=== PATIENT | male | born 1955 | race Caucasian/White ===

== ENCOUNTER → 2017-05-05 09:26 | Outpatient (CLI) | payer OTHER, SELFPAY ==
[2017-05-05 10:29] LABS: ALB/GLOB Ratio 0.9 RATIO (0.9-2.4); AST(SGOT) 20 U/L (15-37); Alanine Aminotransfer ALT/SGPT 29 U/L (16-61); Albumin, Serum 3.5 g/dL (3.2-5.0); Alkaline Phosphatase 71 U/L (45-117); Anion Gap 6 (5-15); BUN 12 mg/dL (7-18); BUN/Creat Ratio 14.5 RATIO (10-20); Calcium,Total 8.5 mg/dL (8.5-10.1); Chloride 107 mmol/L (98-107); Cholesterol 147 mg/dL (200); Creatinine, Serum 0.83 mg/dL (0.70-1.30); EST Glomerular Filtration Rate 100 mL/min (>60); Est Glom Filt Rate - Afr Amer 121 mL/min (>60); Glucose 93 mg/dL (74-106); High Density Lipoprotein 54 mg/dL; PSA,Total - Annual Screen 0.37 ng/mL (0.00-4.00); Potassium 4.3 mmol/L (3.5-5.1); Protein, Total 7.5 g/dL (6.4-8.2); Sodium Level 142 mmol/L (136-145); Triglycerides 57 mg/dL; Very Low Density Lipoprotein 11 mg/dL (5-40)
[2017-05-07 09:53] LABS: Vitamin D,25 Hydroxy 52.9 ng/mL (19.95-100.01)
== END ==
PROVIDERS: Family Provider Family Medicine; PCP Family Medicine; Visit Provider Family Medicine
DX: E78.00 Pure hypercholesterolemia, unspecified (principal); E55.9 Vitamin D deficiency, unspecified; Z12.5 Encounter for screening for malignant neoplasm of prostate
CPT/HCPCS: 36415; 80053; 80061; 82306; 84153; G0103

== ENCOUNTER → 2018-04-22 14:39 | Outpatient (CLI) | payer OTHER, SELFPAY ==
--- NOTE | 2018-04-22 14:44 | RAD_ITS ---
STUDY: X-RAY - PARANASAL SINUSES REASON FOR EXAM: Male, 62 years old. Allergic rhinitis TECHNIQUE: 4 view(s) of the paranasal sinuses were obtained. COMPARISON: None. FINDINGS: There appears to be near complete opacification of the right maxillary sinus. Possible opacification of the frontal sinuses. Remaining paranasal sinuses appear clear Normal visualized facial bones. The soft tissue structures are unremarkable. RAD/Sinuses min 3 Views IMPRESSION: Paranasal sinus disease as above Electronically Signed: Adriano Aranda DO at 15:10 EST Tel , Service support ,
--- OUTSIDE RECORDS SUMMARY | 2018-06-25 02:52 | XMS RPT_ITS ---
:1955 Author Organization OHIP Care Team Providers Name Role Phone Brendon Blanco Attending Unavailable Brendon Blanco Referring Unavailable Brendon Blanco Primary Care Unavailable Brendon Blanco Attending Unavailable Brendon Blanco Referring Unavailable Brendon Blanco Primary Care Unavailable Brendon Blanco Attending Unavailable Brendon Blanco Primary Care Unavailable Brendon Blanco Referring Unavailable Brendon Blanco Attending Unavailable Brendon Blanco Referring Unavailable Brendon Blanco Primary Care Unavailable PROBLEMS PROBLEMS DATE TYPE CONDITION / CODE ATTENDING STATUS SOURCE 04/23/2018 Unknown R93.0 - Abnormal Bella Active Baljinder findings on [facility] imaging of skull Repository and head, not elsewhere classified / R93.0(ICD-10) 04/22/2018 Unknown J30.9 - Allergic Ranney, Active Baljinder rhinitis, [facility] unspecified / Hospital J30.9(ICD-10) Repository PROCEDURES PROCEDURES No Procedure Records FoundRESULTS RESULTS COMPREHENSIVE METABOLIC Collected: 04/27/2018 Status: F Source: [place] PROFIL 10:06 AM [facility] REPOSITORY Order Comment: Order Date: 10/22/17 Order Info: [id number] - CMP Order Info: [id number] - LIPID Order Info: [id number] - PSAD TYPE CODE TESTS RESULT OUT OF RANGE REFERENCE UNITS LAB L501.0100 74-106 mg/dL Normal GLU 88 Result Comment: Please note revised GLUCOSE reference range effective 2017. LAB L501.1000 7-18 mg/dL Normal BUN 12 LAB L501.1100 0.70-1.30 mg/dL Normal CREAT,SERUM 1.08 Result Comment: The validity of the calculated GFR AND GFRAA in patients over 70 years has not been determined. Clinical correlation is essential. LAB L501.1110 >60 mL/min Normal EST GFR 74 Result Comment: Non- GFR Calc LAB L501.1115 >60 mL/min Normal EST GFR - AA 89 Result Comment: GFR Calc LAB L501.1300 10-20 RATIO Normal BUN/CRE 11.1 LAB L501.1500 6.4-8.2 g/dL T Normal PROT 7.5 LAB L501.1800 3.2-5.0 g/dL Normal ALB 3.9 LAB L501.1950 2.2-4.2 g/dL Normal GLOB 3.6 LAB L501.2000 0.9-2.4 RATIO Normal A/G 1.1 LAB L501.2200 8.5-10.1 mg/dL Low CA 8.2 LAB L501.4100 15-37 U/L Normal AST 19 LAB L501.4305 45-117 U/L Normal ALK P 85 LAB L501.4405 16-61 U/L Normal ALT 31 LAB L501.4600 0.20-1.00 mg/dL T Normal BILI 0.70 LAB L501.5300 136-145 mmol/L NA Normal 137 LAB L501.5600 3.5-5.1 mmol/L K Normal 4.3 LAB L501.5900 98-107 mmol/L CL Normal 104 LAB L501.6100 21.0-32.0 mmol/L Normal CO2 26.0 LAB L501.6200 5-15 Normal GAP 7 Performed By: #### L500.4050, L500.4100, L501.9940 #### [facility] [address] [place], [place], [address] LIPID PROFILE Collected: 04/27/2018 Status: F Source: [place] 10:06 AM [facility] REPOSITORY Order Comment: Order Date: 10/22/17 Order Info: [id number] - CMP Order Info: [id number] - LIPID Order Info: [id number] - PSAD TYPE CODE TESTS RESULT OUT OF RANGE REFERENCE UNITS LAB L501.4900 200 mg/dL Normal CHOL 145 Result Comment: <200 mg/dL Desirable 200-240 mg/dL Borderline >240 mg/dL High Risk LAB L501.5000 mg/dL Normal TRIG 63 Result Comment: The drugs N-Acetylcysteine and Metamizole may falsely depress this assay. Serum Triglycerides Reference Interval Normal <150 mg/dL Borderline high 150 - 199 mg/dL High 200 - 499 mg/dL Very High > or = 500 mg/dL LAB L501.6400 mg/dL Normal HDL 57 Result Comment: The drugs N-Acetylcysteine and Metamizole may falsely depress this assay. Reference Range HDL <40 mg/dL Low HDL Cholesterol HDL >or= 60 mg/dL High HDL Cholesterol LAB L501.6500 0-130 mg/dL Normal LDL 75 LAB L501.6600 5-40 mg/dL Normal VLDL 13 Performed By: #### L500.4050, L500.4100, L501.9940 #### [facility] [address] [place], [place], [address] PSA,TOTAL- DIAGNOSTIC Collected: 04/27/2018 Status: F Source: [place] 10:06 [facility] [place] REPOSITORY Order Comment: Order Date: 10/22/17 Order Info: [id number] - CMP Order Info: [id number] - LIPID Order Info: [id number] - PSAD TYPE CODE TESTS RESULT OUT OF RANGE REFERENCE UNITS LAB L501.9940 0.0-4.0 ng/mL PSA, Normal DIAGNOSTIC 0.38 Result Comment: This test was performed using the TPSA assay method for the [employer] chemistry system. Values obtained with different assay methods cannot be used interchangably. When changing PSA assays in the course of monitoring a patient, additional sequential testing should be carried out to confirm baseline values. Performed By: #### L500.4050, L500.4100, L501.9940 #### [facility] [address] [place], [address] SINUSES MIN 3 VIEWS Observed: 04/22/2018 Status: F Source: [place] 2:44 PM [facility] REPOSITORY [facility] Services [address] [place] [address] Sinuses min 3 Views MR#: [id number] Acct: [id number] Name: OBDULIA CLARK Rep #: [id number] : 1955 M 62 From: Adriano Aranda DO PCP: Brendon Blanco MD Status: REG CLI Study: Sinuses min 3 Views Date of Exam: 04/22/18 Exam# [id number] Ordering Dr: Dustin Blanco MD STUDY: X-RAY - PARANASAL SINUSES REASON FOR EXAM: Male, 62 years old. Allergic rhinitis TECHNIQUE: 4 view(s) of the paranasal sinuses were obtained. COMPARISON: None. FINDINGS: There appears to be near complete opacification of the right maxillary sinus. Possible opacification of the frontal sinuses. Remaining paranasal sinuses appear clear Normal visualized facial bones. The soft tissue structures are unremarkable. RAD/Sinuses min 3 Views IMPRESSION: Paranasal sinus disease as above Electronically Signed: Adriano Aranda DO at 15:10 EST Tel , Service support , CC: Brendon Blanco MD Senior Radiation Protection Technician: Signed COMPREHENSIVE METABOLIC Collected: 05/05/2017 Status: F Source: [place] PROFIL 9:33 AM [facility] REPOSITORY Order Comment: Order Date: 10/17/16 Order Info: [id number] - CMP Order Info: [id number] - LIPID Order Info: [id number] - PSA TYPE CODE TESTS RESULT OUT OF RANGE REFERENCE UNITS LAB L501.0100 74-106 mg/dL Normal GLU 93 LAB L501.1000 7-18 mg/dL Normal BUN 12 LAB L501.1100 0.70-1.30 mg/dL Normal 0.83 CREAT,SERUM Result Comment: The validity of the calculated GFR AND GFRAA in patients over 70 years has not been determined. Clinical correlation is essential. LAB L501.1110 >60 mL/min Normal EST GFR 100 Result Comment: Non- GFR Calc LAB L501.1115 >60 mL/min Normal EST GFR - AA 121 Result Comment: GFR Calc LAB L501.1300 10-20 RATIO Normal BUN/CRE 14.5 LAB L501.1500 6.4-8.2 g/dL T Normal PROT 7.5 LAB L501.1800 3.2-5.0 g/dL Normal ALB 3.5 LAB L501.1950 2.2-4.2 g/dL Normal GLOB 4.0 LAB L501.2000 0.9-2.4 RATIO Normal A/G 0.9 LAB L501.2200 8.5-10.1 mg/dL CA Normal 8.5 LAB L501.4100 15-37 U/L Normal AST 20 LAB L501.4305 45-117 U/L Normal ALK P 71 LAB L501.4405 16-61 U/L Normal ALT 29 Result Comment: Please note revised ALT reference range effective 2017. LAB L501.4600 0.20-1.00 mg/dL Normal T BILI 0.60 LAB L501.5300 136-145 mmol/L Normal NA 142 LAB L501.5600 3.5-5.1 mmol/L Normal K 4.3 LAB L501.5900 98-107 mmol/L Normal CL 107 LAB L501.6100 21.0-32.0 mmol/L Normal CO2 29.0 LAB L501.6200 5-15 Normal GAP 6 Performed By: #### L500.4050, L500.4100, L501.9910, L506.1000 #### [facility] [address] [place], [address] LIPID PROFILE Collected: 05/05/2017 Status: F Source: [place] 9:33 AM [facility] REPOSITORY Order Comment: Order Date: 10/17/16 Order Info: [id number] - CMP Order Info: [id number] - LIPID Order Info: [id number] - PSA TYPE CODE TESTS RESULT OUT OF RANGE REFERENCE UNITS LAB L501.4900 200 mg/dL Normal CHOL 147 Result Comment: <200 mg/dL Desirable 200-240 mg/dL Borderline >240 mg/dL High Risk LAB L501.5000 mg/dL Normal TRIG 57 Result Comment: The drugs N-Acetylcysteine and Metamizole may falsely depress this assay. Serum Triglycerides Reference Interval Normal <150 mg/dL Borderline high 150 - 199 mg/dL High 200 - 499 mg/dL Very High > or = 500 mg/dL LAB L501.6400 mg/dL Normal HDL 54 Result Comment: The drugs N-Acetylcysteine and Metamizole may falsely depress this assay. Reference Range HDL <40 mg/dL Low HDL Cholesterol HDL >or= 60 mg/dL High HDL Cholesterol LAB L501.6500 0-130 mg/dL Normal LDL 82 LAB L501.6600 5-40 mg/dL Normal VLDL 11 Performed By: #### L500.4050, L500.4100, L501.9910, L506.1000 #### [facility] [address] [place], [address] PSA,TOTAL - ANNUAL Collected: 05/05/2017 Status: F Source: [place] SCRE[place] 9:33 AM [facility] REPOSITORY Order Comment: Order Date: 10/17/16 Order Info: [id number] - CMP Order Info: [id number] - LIPID Order Info: [id number] - PSA TYPE CODE TESTS RESULT OUT OF RANGE REFERENCE UNITS LAB L501.9910 0.00-4.00 ng/mL Normal PSA,TOT 0.37 SCREEN Result Comment: This test was performed using the TPSA assay method for the [employer] chemistry system. Values obtained with different assay methods cannot be used interchangably. When changing PSA assays in the course of monitoring a patient, additional sequential testing should be carried out to confirm baseline values. Performed By: #### L500.4050, L500.4100, L501.9910, L506.1000 #### [facility] [address] [place], [address] VITAMIN D,25 HYDROXY Collected: 05/05/2017 Status: F Source: [place] 9:33 AM [facility] REPOSITORY Order Comment: Order Date: 10/17/16 Order Info: [id number] - VITD25 TYPE CODE TESTS RESULT OUT OF RANGE REFERENCE UNITS LAB L506.1000 19.95-100.01 ng/mL Normal Vitamin D 52.9 25-OH Result Comment: Vitamin D 25(OH) Status Range Deficiency <20 ng/mL (50nmol/L) Insuffciency 20 - 30 ng/mL (50 - 75 nmol/L) Sufficiency 30 - 100 ng/mL (75 - 250 nmol/L) Toxicity >100 ng/mL (>250 nmol/L) Performed By: #### L500.4050, L500.4100, L501.9910, L506.1000 #### [facility] [address] [place], [address] ALLERGIES ALLERGIES No Allergies Records FoundENCOUNTERS ENCOUNTERS ADMIT/DISCHARGE ACCOUNT ADMITTING ENCOUNTER LOCATION SOURCE NUMBER CLASS 04/27/2018 [id number] Ambulatory [facility] ing:LAB Repository 04/23/2018 [id number] [facility] ing:RAD.FUTUR Repository E 04/22/2018 [id number] Ambulatory [facility] ing:MTRAD Repository 05/05/2017 [id number] [facility] ing:LAB Repository PAYERS PAYERS ENCOUNTER GUARANTOR PAYER SUBSCRIBER SOURCE 04/27/2018 OBDULIA Parker Primary OBDULIA [id number] Insurance:MEDICAL YOUNGDOB[place] [facility] [place] [id number] [address]Ato: [phone]) Number: Repository [phone] ( [id number] Date:2804-12-47DO [address] [address]EL: 04/27/2018 Secondary NOT GIVENUNK Baljinder Insurance:SELF PAY [facility] Number: Effective Repository Date:2018-04-27 04/23/2018 OBDULIA Parker Primary OBDULIA Parker [place] [id number] Insurance:MEDICAL YOUNGDOB: [facility] [place] [id number] [id number]: [phone]) Number: Repository [phone] () [id number] Date:[id number] [address] [address]AY: 04/23/2018 Secondary NOT GIVENUNK [place] Insurance:SELF PAY [facility] Number: Effective Repository Date:2018-04-23 04/22/2018 OBDULIA Parker Primary OBDULIA Parker [place] [id number] Insurance:MEDICAL YOUNGDOB: [facility] [place] [id number] [id number]: [phone]) Number: Repository [phone] () [id number] Date:[id number] [address] [address]CA: 04/22/2018 Secondary NOT GIVENUNK Baljinder Insurance:SELF PAY [facility] Number: Effective Repository Date:2018-04-22 05/05/2017 Obdulia Parker Primary Obdulia Parker Balj[place] [id number] Insurance:MEDICAL YoungDOB: [facility] [place] [id number] [id number]: [phone]) Number: Repository [phone] () [id number] Date:[id number] [address] [place] [address]PY: 05/05/2017 Secondary NOT GIVENUNK Baljinder Insurance:SELF PAY [facility] Number: Effective Repository Date:2017-05-04
== END ==
PROVIDERS: Family Provider Family Medicine; PCP Family Medicine; Referring Provider Family Medicine; Visit Provider Family Medicine
DX: J30.9 Allergic rhinitis, unspecified (principal)
CPT/HCPCS: 70220

== ENCOUNTER → 2018-04-27 09:57 | Outpatient (CLI) | payer OTHER, SELFPAY ==
[2018-04-27 11:19] LABS: ALB/GLOB Ratio 1.1 RATIO (0.9-2.4); AST(SGOT) 19 U/L (15-37); Alanine Aminotransfer ALT/SGPT 31 U/L (16-61); Albumin, Serum 3.9 g/dL (3.2-5.0); Alkaline Phosphatase 85 U/L (45-117); Anion Gap 7 (5-15); BUN 12 mg/dL (7-18); BUN/Creat Ratio 11.1 RATIO (10-20); Calcium,Total 8.2 mg/dL (8.5-10.1); Chloride 104 mmol/L (98-107); Cholesterol 145 mg/dL (200); Creatinine, Serum 1.08 mg/dL (0.70-1.30); EST Glomerular Filtration Rate 74 mL/min (>60); Est Glom Filt Rate - Afr Amer 89 mL/min (>60); Globulin 3.6 g/dL (2.2-4.2); Glucose 88 mg/dL (74-106); High Density Lipoprotein 57 mg/dL; PSA,Total- Diagnostic 0.38 ng/mL (0.0-4.0); Potassium 4.3 mmol/L (3.5-5.1); Protein, Total 7.5 g/dL (6.4-8.2); Sodium Level 137 mmol/L (136-145); Triglycerides 63 mg/dL; Very Low Density Lipoprotein 13 mg/dL (5-40)
== END ==
PROVIDERS: Family Provider Family Medicine; PCP Family Medicine; Referring Provider Family Medicine; Visit Provider Family Medicine
DX: I10 Essential (primary) hypertension (principal); E78.00 Pure hypercholesterolemia, unspecified; Z12.5 Encounter for screening for malignant neoplasm of prostate
CPT/HCPCS: 36415; 80053; 80061; 84153

== ENCOUNTER → 2018-05-31 15:32 | Outpatient (CLI) | payer OTHER, SELFPAY ==
--- NOTE | 2018-05-31 15:33 | RAD_ITS ---
STUDY: X-RAY - PARANASAL SINUSES REASON FOR EXAM: Male, 62 years old. TECHNIQUE: 3 view(s) of the paranasal sinuses were obtained. COMPARISON: Previous study of 04/22/2018 FINDINGS: There is opacification of the right maxillary and right frontal sinuses. Normal visualized facial bones. The soft tissue structures are unremarkable. RAD/Sinuses min 3 Views IMPRESSION: Opacification of the right frontal and maxillary sinuses. The right maxillary sinus opacification is similar to the previous study. The right frontal sinus opacification also appears to been present on the prior study. Electronically Signed: Shabbir Baez MD at 16:15 EST , Service support ,
== END ==
PROVIDERS: Family Provider Family Medicine; PCP Family Medicine; Referring Provider Family Medicine; Visit Provider Family Medicine
DX: R93.0 Abnormal findings on diagnostic imaging of skull and head, not elsewhere classified (principal)
CPT/HCPCS: 70220

== ENCOUNTER → 2018-08-01 | Outpatient (CLI) | payer OTHER, SELFPAY ==
--- NOTE | 2018-08-01 16:43 | CT_ITS ---
STUDY: CT MAXILLOFACIAL SINUSES REASON FOR EXAM: Male, 62 years old. Left-sided pain, polyp RADIATION DOSAGE (If Supplied By Facility): CTDIvol = ( 29.38 ) mGy, DLP = ( 407.88 ) mGycm TECHNIQUE: The patient was scanned in a multi detector CT scanner. High resolution axial imaging was performed without the administration of intravenous contrast material. Sagittal and coronal images were reconstructed. Individualized dose optimization techniques were used for this CT. COMPARISON: None. FINDINGS: FRONTAL SINUSES: Diffuse mucosal thickening. ETHMOIDAL SINUSES: Diffuse mucosal thickening. MAXILLARY SINUSES: Mucosal thickening bilaterally, right more than left. Possible underlying retention cysts in the maxillary sinuses. SPHENOIDAL SINUSES: Mild mucosal thickening, right more than left. Mucosal thickening at the bilateral ostiomeatal complexes causing obstruction. Normal bilateral middle turbinates. Normal bilateral inferior turbinates. No significant deviation of the nasal septum. There is patency of the bilateral nasal airways. The visualized osseous structures are normal. The visualized bilateral orbital contents are normal. CT/Sinus/Facial Bone IMPRESSION: Pansinusitis. Mucosal thickening obstructing the ostiomeatal complexes bilaterally. Electronically Signed: Pankaj Garcia DO at 19:55 EDT Tel [phone], Service support ,
== END | disposition home or self-care (01) ==
LOC: CT 16:42
PROVIDERS: Family Provider Family Medicine; PCP Family Medicine
DX: J33.0 Polyp of nasal cavity (principal)
CPT/HCPCS: 70486

== ENCOUNTER → 2019-04-19 07:14 | Outpatient (CLI) | payer OTHER, SELFPAY ==
[2019-04-19 08:01] LABS: Anion Gap 3 (5-15); BUN 14 mg/dL (7-18); Calcium,Total 9.1 mg/dL (8.5-10.1); Chloride 107 mmol/L (98-107); Cholesterol 188 mg/dL (200); Creatinine, Serum 0.94 mg/dL (0.70-1.30); EST Glomerular Filtration Rate 86 mL/min (>60); Est Glom Filt Rate - Afr Amer 105 mL/min (>60); Glucose 95 mg/dL (74-106); High Density Lipoprotein 64 mg/dL; PSA,Total - Annual Screen 0.34 ng/mL (0.00-4.00); Potassium 4.2 mmol/L (3.5-5.1); Sodium Level 140 mmol/L (136-145); Triglycerides 61 mg/dL; Very Low Density Lipoprotein 12 mg/dL (5-40)
[2019-04-21 09:10] LABS: Vitamin D,25 Hydroxy 74.7 ng/mL (29.95-100.01)
== END ==
PROVIDERS: PCP Family Medicine; Referring Provider Family Medicine; Visit Provider Family Medicine
DX: I10 Essential (primary) hypertension (principal); E55.9 Vitamin D deficiency, unspecified; E78.00 Pure hypercholesterolemia, unspecified; Z12.5 Encounter for screening for malignant neoplasm of prostate
CPT/HCPCS: 36415; 80048; 80061; 82306; 84153; G0103

== ENCOUNTER → 2020-04-28 08:11 | Outpatient (CLI) | payer OTHER, SELFPAY ==
[2020-04-28 09:04] LABS: Vitamin D,25 Hydroxy 65.3 ng/mL
[2020-04-28 09:06] LABS: Anion Gap 5 (5-15); BUN 16 mg/dL (7-18); BUN/Creat Ratio 17.1 RATIO (10-20); Calcium,Total 8.9 mg/dL (8.5-10.1); Chloride 105 mmol/L (98-107); Cholesterol 163 mg/dL (200); Creatinine, Serum 0.93 mg/dL (0.70-1.30); EST Glomerular Filtration Rate 86 mL/min (>60); Est Glom Filt Rate - Afr Amer 105 mL/min (>60); Glucose 95 mg/dL (74-106); High Density Lipoprotein 61 mg/dL; PSA,Total - Annual Screen 0.41 ng/mL (0.00-4.00); Potassium 4.2 mmol/L (3.5-5.1); Sodium Level 140 mmol/L (136-145); Triglycerides 72 mg/dL; Very Low Density Lipoprotein 14 mg/dL (5-40)
== END ==
PROVIDERS: PCP Family Medicine; Referring Provider Family Medicine; Visit Provider Family Medicine
DX: E78.00 Pure hypercholesterolemia, unspecified (principal); I10 Essential (primary) hypertension; Z12.5 Encounter for screening for malignant neoplasm of prostate; E55.9 Vitamin D deficiency, unspecified
CPT/HCPCS: 36415; 80048; 80061; 82306; 84153; G0103

== ENCOUNTER 2021-05-02 10:18 | Outpatient (CLI) | payer OTHER, MEDICARE, SELFPAY ==
[2021-05-02 12:58] LABS: Vitamin D,25 Hydroxy 82.7 ng/mL
[2021-05-02 13:06] LABS: ALB/GLOB Ratio 0.9 RATIO (0.9-2.4); AST(SGOT) 17 U/L (15-37); Alanine Aminotransfer ALT/SGPT 30 U/L (16-61); Albumin, Serum 3.5 g/dL (3.2-5.0); Alkaline Phosphatase 86 U/L (45-117); Anion Gap 4 (5-15); BUN 14 mg/dL (7-18); BUN/Creat Ratio 18.8 RATIO (10-20); Calcium,Total 8.8 mg/dL (8.5-10.1); Chloride 105 mmol/L (98-107); Cholesterol 172 mg/dL (200); Creatinine, Serum 0.75 mg/dL (0.70-1.30); EST Glomerular Filtration Rate 112 mL/min (>60); Est Glom Filt Rate - Afr Amer 135 mL/min (>60); Globulin 3.9 g/dL (2.2-4.2); Glucose 82 mg/dL (74-106); High Density Lipoprotein 60 mg/dL; PSA,Total - Annual Screen 0.75 ng/mL (0.00-4.00); Protein, Total 7.4 g/dL (6.4-8.2); Sodium Level 137 mmol/L (136-145); Triglycerides 84 mg/dL; Very Low Density Lipoprotein 17 mg/dL (5-40)
== END 2021-05-02 23:59 | disposition short-term general hospital (02) ==
LOC: MFPLAB 10:21
PROVIDERS: PCP Family Medicine; Visit Provider Family Medicine
DX: Z12.5 Encounter for screening for malignant neoplasm of prostate (principal); E78.00 Pure hypercholesterolemia, unspecified; E55.9 Vitamin D deficiency, unspecified
CPT/HCPCS: 36415; 80053; 80061; 82306; 84153; G0103

== ENCOUNTER 2021-05-16 07:44 | Outpatient (CLI) | payer OTHER, MEDICARE, SELFPAY ==
--- NOTE | 2021-05-16 07:51 | AAAS_ITS ---
Reason For Study: Screening Aorta Measurements Aorta Doppler Measurements Proximal aorta measures2.29cm x 2.19cm. in cross- Peak systolic flow velocities within the proximal sectional axis. aorta measure 115 cm/sec. Proximal aorta measures2.18cm. in longitudinal Peak systolic flow velocities within the mid aorta axis. measure 128 cm/sec. Mid aorta measures1.96cm x 2.07cm. in cross- Peak systolic flow velocities within the distal sectional axis. aorta measure 66 cm/sec. Mid aorta measures1.94cm. in longitudinal axis. Distal aorta measures1.65cm x 1.76cm. in cross- sectional axis. Distal aorta measures1.79cm. in longitudinal axis. Left Iliac Artery Left iliac artery measures 1.25cm x 1.24 cm. in the cross-sectional axis. Left iliac artery measures 1,24 cm. in the longitudinal axis. Peak systolic velocity in the left iliac artery measures 108 cm/sec. Right Iliac Artery Right iliac artery measures 1.07cm x 1.07 cm. in the cross-sectional axis. Right iliac artery measures 1.02 cm. in the longitudinal axis. Peak systolic velocity in the right iliac artery measures 132 cm/sec. Procedure Aorta IVC Iliac vasculature or bypass grafts [id number]. Exam performed in department. VL/AAA Screening Interpretation Summary Maximal aortic diameter approximate 2.29 x 2.19 cm which is normal. Velocities flow slightly elevated within the proximal aorta at 115 cm second pe ak static flow Left common iliac slightly ectatic at 1.25 x 1.24 cm diameter Right common iliac 1.07 x 1.07 cm diameter No current finding of abdominal aortic aneurysm Ordering Physician: Brendon Blanco Referring Physician: Renata Blanco Performed By: Agatha Escobar, RACHANACS, RVT
== END 2021-05-16 23:59 | disposition home or self-care (01) ==
PROVIDERS: PCP Family Medicine; Visit Provider Family Medicine
DX: Z13.6 Encounter for screening for cardiovascular disorders (principal)
CPT/HCPCS: 76706

== ENCOUNTER → 2022-05-04 | Outpatient (CLI) | payer OTHER, MEDICARE, SELFPAY ==
[2022-05-04 10:32] LABS: Vitamin D,25 Hydroxy 74.1 ng/mL
[2022-05-04 10:56] LABS: Anion Gap 7 (5-15); BUN 14 mg/dL (7-18); BUN/Creat Ratio 15.9 RATIO (10-20); Chloride 105 mmol/L (98-107); Cholesterol 181 mg/dL (200); Creatinine, Serum 0.88 mg/dL (0.70-1.30); EST Glomerular Filtration Rate 92 mL/min (>60); Est Glom Filt Rate - Afr Amer 111 mL/min (>60); Glucose 96 mg/dL (74-106); High Density Lipoprotein 61 mg/dL; PSA,Total - Annual Screen 0.36 ng/mL (0.00-4.00); Sodium Level 140 mmol/L (136-145); Triglycerides 67 mg/dL; Very Low Density Lipoprotein 13 mg/dL (5-40)
== END | disposition home or self-care (01) ==
LOC: MFPLAB 09:06
PROVIDERS: PCP Family Medicine; Referring Provider Family Medicine; Visit Provider Family Medicine
DX: Z13.220 Encounter for screening for lipoid disorders (principal); R80.9 Proteinuria, unspecified; Z12.5 Encounter for screening for malignant neoplasm of prostate; E55.9 Vitamin D deficiency, unspecified
CPT/HCPCS: 36415; 80048; 80061; 82306; 84153; G0103

== ENCOUNTER → 2023-04-16 | Outpatient (CLI) | payer MEDICARE, OTHER, SELFPAY ==
[2023-04-16 09:49] LABS: Absolute Lymphocyte Count 1.03 X10^3/uL (0.83-4.51); Absolute Neutrophil Count 2.9 X10^3/uL (2.0-7.7); Basophil# 0.04 X10^3/uL; Basophil% 0.9 % (0-1); Eosinophil# 0.07 X10^3/uL; Eosinophils% 1.5 % (0-5); Hematocrit 44.2 % (40-54); Hemoglobin 14.3 g/dL (13.0-16.5); Lymphocyte # 1.03 X10^3/ul (0.83-4.51); Lymphocyte % 22.8 % (19-41); Mean Corp Hgb Conc 32.4 g/dL (32-36); Mean Corpuscular Hgb 29.1 pg (27.0-32.0); Mean Platelet Vol. 10.4 fl (6.2-12.0); Monocyte# 0.44 X10^3/uL; Monocyte% 9.7 % (0-10); NRBC Flagged by Analyzer 0 % (0-5); Neutrophil # 2.93 X10^3/uL (2.7-7.7); Neutrophil % 64.9 % (47-70); Platelet Count 192 K/mm3 (150-450); RBC Distribution Width CV 13.1 % (11.6-14.6); Red Blood Count 4.91 M/mm3 (4.6-6.2); White Blood Count 4.5 K/mm3 (4.4-11.0)
[2023-04-16 10:17] LABS: Vitamin D,25 Hydroxy 80.2 ng/mL
[2023-04-16 11:19] LABS: ALB/GLOB Ratio 0.9 RATIO (0.9-2.4); AST(SGOT) 18 U/L (15-37); Alanine Aminotransfer ALT/SGPT 26 U/L (16-61); Albumin, Serum 3.6 g/dL (3.2-5.0); Alkaline Phosphatase 93 U/L (45-117); Anion Gap 5 (5-15); BUN 18 mg/dL (7-18); BUN/Creat Ratio 19.7 RATIO (10-20); Calcium,Total 8.9 mg/dL (8.5-10.1); Chloride 107 mmol/L (98-107); Cholesterol 167 mg/dL (200); Creatinine, Serum 0.91 mg/dL (0.70-1.30); EST Glomerular Filtration Rate 88 mL/min (>60); Est Glom Filt Rate - Afr Amer 106 mL/min (>60); Globulin 3.8 g/dL (2.2-4.2); Glucose 93 mg/dL (74-106); High Density Lipoprotein 58 mg/dL; Potassium 4.1 mmol/L (3.5-5.1); Protein, Total 7.4 g/dL (6.4-8.2); Sodium Level 140 mmol/L (136-145); Triglycerides 73 mg/dL; Very Low Density Lipoprotein 15 mg/dL (5-40)
== END | disposition home or self-care (01) ==
PROVIDERS: PCP Internal Medicine; Visit Provider Internal Medicine
DX: Z00.00 Encounter for general adult medical examination without abnormal findings (principal); E55.9 Vitamin D deficiency, unspecified; Z13.6 Encounter for screening for cardiovascular disorders
CPT/HCPCS: 36415; 80053; 80061; 82306; 85025

== ENCOUNTER 2023-12-04 07:26 | Day surgery (SDC) | payer MEDICARE, OTHER, SELFPAY ==
--- NOTE | 2023-12-04 07:50 | PCM.PRE.AN2 ---
ASA Classification* ASA Classification ASA Classification: 2 Assessment & Plan Anesthesia* Anesthesia Assessment Anesthesia Assessment: Discussed sedation and/or anesthesia options, risks, benefits, and alternatives with patient/parents/legal guardian/POA. Questions invited. The patient/parents/legal guardian/POA seems to understand and agrees to proceed with anesthesia plan. Reviewed the physical assessment, medical history, allergy history and patient home medications list prior to surgery/procedure/anesthetic and documented any changes. Performed airway and anesthesia risk assessments. Anesthesia Type Anesthesia Type: MAC (see written pre anesthesia record for full assessment ) Anesthesia Focused Assessment* Airway Assessment Mouth opens: >3 cm Mallampati Score: II Focused Labs Anesthesia Preop lab: CBC WBC 4.5 K/mm3 (4.4-11.0) 04/16/23 09:33 RBC 4.91 M/mm3 (4.6-6.2) 04/16/23 09:33 Hgb 14.3 g/dL (13.0-16.5) 04/16/23 09:33 Hct 44.2 % (40-54) 04/16/23 09:33 Plt Count 192 K/mm3 (150-450) 04/16/23 09:33 CHEMISTRY Potassium 4.1 mmol/L (3.5-5.1) 04/16/23 09:33 Sodium 140 mmol/L (136-145) 04/16/23 09:33 BUN 18 mg/dL (7-18) 04/16/23 09:33 Creatinine 0.91 mg/dL (0.70-1.30) 04/16/23 09:33 Glucose 93 mg/dL (74-106) 04/16/23 09:33 TSH 1.41 uIU/mL (0.358-3.74) 08/29/14 10:09 COAG Pre-Assessment Diagnosis/Proposed Procedure Planned Operative Procedure(s): COLONSCOPY Anesthesia History Anesthesia History - manager entry: Anesthesia History - manager entry Hx Hospitalization No 11/28/23 12:43 Any Problems With Anesthesia No 11/28/23 12:43 Cholinesterase deficiency No 11/28/23 12:43 You/Your Family Experience No 11/28/23 12:43 fever (hyperthermia) with Relationship Recent Exposure to Contagious Disease Does patient have nerve No 11/28/23 12:43 stimulator Patient instructed to have device shut off --Does patient have Pacemaker or ICD? When Was Last Pacemaker Check QUESTION #4 FULL TEXT: You/Your Family Experience fever (hyperthermia) with Anesthesia Last Oral Intake Last Oral intake: Last Oral Intake NPO since Meds taken in AM with sips of water? Meds patient instructed to take am of surgery PONV PONV - manager entry: PONV - manager entry Female No 11/28/23 12:43 HX of Motion Sickness No 11/28/23 12:43 HX of N/V After Surgery No 11/28/23 12:43 Non-Smoker Yes 11/28/23 12:43 Duration of Surgery greater No 11/28/23 12:43 than 60 minutes Number of Risk Factors 1 11/28/23 12:43 PONV Score Low Risk 11/28/23 12:43 Height & Weight Height & Weight: Anesthesia: Height & Weight Height 6 ft 11/08/23 11:33 Respiratory Assessment Respiratory Assessment - manager entry: Respiratory Tract Infection Hx - manager entry Hx Respiratory Tract Infection No 11/28/23 12:43 STOP Sleep Apnea STOP Sleep Apnea - manager entry: STOP Sleep Apnea - manager entry Hx Hypertension No 11/28/23 12:43 Hx Sleep Apnea No 11/28/23 12:43 CPAP BIPAP Do you snore loudly (louder No 11/28/23 12:43 than talking or can be heard Do you often feel tired/ No 11/28/23 12:43 fatigued/ sleepy during daytime? Has anyone observed you stop No 11/28/23 12:43 breathing during sleep? STOP Results Negative 11/28/23 12:43 QUESTION #5 FULL TEXT : Do you snore loudly (louder than talking or can be heard through closed doors)? 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 Specify any problems Hx of Preganancy in last 3 N/A 11/28/23 12:43 Months Nurse Filling Out Transfusion [facility] 11/28/23 12:43 & Questions: Date: 11/28/23 11/28/23 12:43 Time: 12:48 11/28/23 12:43 Patient unable to answer at this time (ie. confused, unrespo /Reproduction History /Reproductive History - manager entry: /Reproductive Hx- manager entry Hx Now Gestational Age (in weeks): EDC: Hx Hx Para Hx Section SAB Active Medications Active Medications: Current Medications Generic Name Dose Route Start Last Admin Trade Name Freq PRN Reason Stop Dose Admin Lactated Ringer's 1,000 mls @ 15 mls/hr 12/04/23 07:45 IV .Q48H MANOJ PFSH Medical History Arthritis Non-smoker History of stress test Normal colonoscopy Nasal polyps Home Medications ?Medication ?Instructions ?Recorded ?Last Taken ?Type cholecalciferol (vitamin D3) 10 10 mcg PO DAILY 04/10/23 Unknown History mcg (400 unit) capsule ipratropium bromide 21 mcg (0.03 2 spray intranasal DAILY PRN 04/10/23 Unknown History %) nasal spray ALLERGIES multivitamin 1 tab PO DAILY 04/10/23 Unknown History vitamin B complex 1 tab PO DAILY 04/10/23 Unknown History Allergy/AdvReac Type Severity Reaction Status Date / Time No Known Allergies Allergy Verified 11/28/23 12:41 Family History Mother Diabetes Multiple sclerosis Father Heart disease Arthritis Grandfather Arthritis Surgical History H/O sinus surgery Social History household members: spouse current occupational status: retired 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
[2023-12-04] MEDS: Lactated Ringers 1,000 ML 15 ML IV (07:52)
[2023-12-04 07:53] VITALS: BP 118/73; PULSE 65; RESP 16; TEMP 36.6; O2SAT 100; BMI 25.9
--- NOTE | 2023-12-04 08:09 | H&P.OPEN ---
[facility] - General General Date of Service: 12/04/23 HPI Narrative OBDULIA CLARK, is a 68 M who presents for screening colonoscopy. Patient last colonoscopy was [address] Greco negative per patient. Patient denies any family history colon cancer. Patient has bowel movements daily denies any blood. Patient denies any chronic abdominal pain/nausea/vomiting/reflux. [facility] Medical History Arthritis Non-smoker History of stress test Normal colonoscopy Nasal polyps Home Medications ?Medication ?Instructions ?Recorded ?Last Taken ?Type cholecalciferol (vitamin D3) 10 10 mcg PO DAILY 04/10/23 Unknown History mcg (400 unit) capsule ipratropium bromide 21 mcg (0.03 2 spray intranasal DAILY PRN 04/10/23 Unknown History %) nasal spray ALLERGIES multivitamin 1 tab PO DAILY 04/10/23 Unknown History vitamin B complex 1 tab PO DAILY 04/10/23 Unknown History Allergy/AdvReac Type Severity Reaction Status Date / Time No Known Allergies Allergy Verified 12/04/23 07:51 Family History Mother Diabetes Multiple sclerosis Father Heart disease Arthritis Grandfather Arthritis Surgical History H/O sinus surgery Social History household members: spouse current occupational status: retired 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 - [employer] pets and animals: Yes Smoking Status: Never smoker Electronic Cigarette Use: not used alcohol intake: current alcohol intake frequency: holidays/special occasions only Alcohol type: beer substance use type: does not use caffeine: Yes (1-2) Type: coffee frequency: daily seatbelt use: always do you feel safe at home: Yes Past Medical/Surgical History Planned Operation Planned Operative Procedure(s): COLONSCOPY Previous Hospitalizations/Surgeries HX Hospitalizations: No Any Problems With Anesthesia: No You/Your Family Experience Fever (Hyperthermia) With Anes: No Cholinesterase deficiency: No Cardiovascular Hx of Irregular Heartbeat and/or Afib: No Hx Heart Attack: No Hx Congestive Heart Failure: No Hx Hypertension: No Hx Pacemaker: No Respiratory Hx Chronic Obstructive Pulmonary Disease (COPD): No Hx Asthma: No Hx Emphysema: No Hx Sleep Apnea: No Hx Respiratory Tract Infection/Cold (presently): No Do You Snore Loudly (louder than talking or can be heard): No Do You Often Feel Tired/ Fatigued/ Sleepy Dring Daytime?: No Has Anyone Observed You Stop Breathing During Sleep?: No Result (for STOP score): Negative Smoking Status: Never smoker Gastrointestinal Special diet followed at home: Yes Neurological Does patient have nerve stimulator: No Miscellaneous Recent Exposure to Contagious Disease: No Allergies No Known Allergies Allergy (Verified 12/04/23 07:51) Discharge Is Pt Admitted From a Halfway, or a [place] [facility]: No Who Could Help: After D/C, Where Do you Plan to Go: Return Home Vital Signs Vital Signs Vital Signs: 12/04/23 07:53 12/04/23 07:53 Temperature 97.8 F Temperature Source Temporal Pulse Rate 65 Respiratory Rate 16 Respiratory Pattern Normal Blood Pressure 118/73 Blood Pressure Mean 88 Blood Pressure Source Monitor Blood Pressure Position Semi-Fowlers Blood Pressure Location Left Arm Pulse Ox 100 Oxygen Delivery Method Room Air Weight Weight: 191 lb 12.835 oz Body Mass Index (BMI) 25.9 Physical Exam Const alert, oriented x3 and no apparent distress HEENT normocephalic and head/scalp atraumatic Resp normal respiratory effort Cardio regular rate GI soft to palpation and non-tender; Negative for non-distended Palpation: Negative for guarding Extremity no clubbing, cyanosis or edema Skin no rashes or lesions noted Neuro CN's II-XII intact bilaterally Psych mental status grossly normal Assessment & Plan Assessment/Plan (1) Encounter for screening for malignant neoplasm of colon: Surgery Risks - Colonoscopy I discussed with the patient the risks of the procedure: Yes Risks Include but are not Limited To: Risks include but are not limited to: Bleeding, perforation requiring further surgery, inability to complete colonoscopy requiring barium enema.
[2023-12-04 09:40] VITALS: BP 118/73; BP 120/75; PULSE 58; RESP 16; TEMP 36.2; O2SAT 100
--- NOTE | 2023-12-04 09:40 | OP.COLON_ITS ---
Patient Name: Maik Caro Procedure Date: 12/04/2023 9:10 AM Date of : 1955 Age: 68 Procedure: Colonoscopy Indications: Screening for colorectal malignant neoplasm Providers: Nasrin Jacobson MD Referring MD: Alisson Smith Md Medicines: Monitored Anesthesia Care Patient Profile: This is a 68 year old male. Last Colonoscopy: 2013. Complications: No immediate complications. Procedure: Pre-Anesthesia Assessment: - Prior to the procedure, a History and Physical was performed, and patient medications and allergies were reviewed. The patient's tolerance of previous anesthesia was also reviewed. The risks and benefits of the procedure and the sedation options and risks were discussed with the patient. All questions were answered, and informed consent was obtained. Prior Anticoagulants: The patient has taken no anticoagulant or antiplatelet agents. ASA Grade Assessment: Per anesthesia. After reviewing the risks and benefits, the patient was deemed in satisfactory condition to undergo the procedure. After I obtained informed consent, the scope was passed under direct vision. Throughout the procedure, the patient's blood pressure, pulse, and oxygen saturations were monitored continuously. The colonoscope was introduced through the anus and advanced to the cecum, identified by appendiceal orifice and ileocecal valve. The colonoscopy was somewhat difficult due to a tortuous colon. Successful completion of the procedure was aided by applying abdominal pressure. The patient tolerated the procedure well. The quality of the bowel preparation was good. Scope In: 9:15:50 AM Scope Withdrawal Time 0 hours 7 minutes 58 seconds Scope Out: 9:34:18 AM Total Procedure Duration Time 0 hours 18 minutes 28 seconds Findings: The perianal and digital rectal examinations were normal. The entire examined colon appeared normal on direct and retroflexion views. Impression: - The entire examined colon is normal on direct and retroflexion views. - No specimens collected. Recommendation: - Discharge patient to home. - Resume previous diet. - Continue present medications. - Repeat colonoscopy in 10 years for screening purposes. - depending on overall health at time of possible repeat Procedure Code(s): --- Professional --- G0121, PT, Colorectal cancer screening; colonoscopy on individual not meeting criteria for high risk Diagnosis Code(s): --- Professional --- Z12.11, Encounter for screening for malignant neoplasm of colon CPT copyright 2021 [employer]. All rights reserved. The codes documented in this report are preliminary and upon flat clothier review may be revised to meet current compliance requirements. MD Nasrin Linn MD 12/04/2023 9:39:43 AM This report has been signed electronically. Number of Addenda: 0 Note Initiated On: 12/04/2023 9:10 AM
--- NOTE | 2023-12-04 09:40 | OP.CCLET_ITS ---
12/04/2023 Alisson Smith Md Re : Colonoscopy procedure for Maik Caro Dear Sarah This procedure was performed on Monday, December 04, 2023. My impressions and recommendations are as follows: Impressions : - The entire examined colon is normal on direct and retroflexion views. - No specimens collected. Recommendations : - Discharge patient to home. - Resume previous diet. - Continue present medications. - Repeat colonoscopy in 10 years for screening purposes. - depending on overall health at time of possible repeat My findings are described in the full procedure note, which is enclosed. If I can be of further assistance, please feel free to contact me at Doctor phone number(s): , Work: . Sincerely, MD Nasrin Linn MD 12/04/2023 9:39:43 AM This report has been signed electronically.
--- NOTE | 2023-12-04 09:41 | PCM.POST.ANE ---
Anesthesia: Postop Eval I Current Vital Signs Temperature: 97.2 F Pulse Rate: 60 Blood Pressure: 120/75 Respiratory Rate: 16 Pulse Ox: 100 Oxygen Delivery Method: Room Air Assessment Airway patent: Yes Spontaneous unlabored respirations: Yes Mental status: Awake and Calm nausea: No Vomiting: No Anesthesia Complication: No Fluid Hydration Crystalloid volume administer (ml): 600 Total IV fluid infused: 600 Progress Note Anesthesia document: Postop Eval 1 completed: Yes
[2023-12-04 09:42] VITALS: BP 120/75; PULSE 60; RESP 16; TEMP 36.2; O2SAT 100
[2023-12-04 09:45] VITALS: BP 118/73; BP 96/76; PULSE 60; RESP 16; O2SAT 99
[2023-12-04 09:50] VITALS: BP 103/78; BP 118/73; PULSE 62; RESP 16; TEMP 36.3; O2SAT 99
[2023-12-04 10:09] VITALS: BP 118/73
--- NOTE | 2023-12-04 12:28 | PCM.POSTANE2 ---
Anesthesia Postop Eval I Sum Postop Eval Completion status Anesthesia document: Postop Eval 1 completed: Yes Anesthesia Postop Eval I Summary Anesthesia Postop Eval I Summary: Anesthesia Postop Eval I: Assessment Summary Airway patent Yes 12/04/23 09:42 [email or web address] Spontaneous unlabored Yes 12/04/23 09:42 [email or web address] respirations Mental status Awake,Calm 12/04/23 09:42 [email or web address] nausea No 12/04/23 09:42 [email or web address] Vomiting No 12/04/23 09:42 [email or web address] Anesthesia Postop Eval I: Fluid Summary Crystalloid volume administer 600 12/04/23 09:42 [email or web address] (ml) Colloids volume administered ( ml) Blood Product volume administered (ml) Total IV fluid infused 600 12/04/23 09:42 [email or web address] Anesthesia Postop Eval I: Summary Notes Anesthesia Complication No 12/04/23 09:42 [email or web address] Anesthesia Complication Comment: Post-operative progress note Anesthesia: Postop Eval II Evaluation Mental status: Awake and Calm Pain Level: 0 nausea: No Vomiting: No Complications Anesthesia Complication: No
== END 2023-12-04 10:15 | disposition home or self-care (01) ==
LOC: EN 07:27 → AC 07:28
PROVIDERS: PCP Internal Medicine; Referring Provider Internal Medicine; Visit Provider Surgery
PROC: 0DJD8ZZ Inspection of Lower Intestinal Tract, Via Natural or Artificial Opening Endoscopic (ICD-10-PCS; CPT 45378; principal; 2023-12-04 08:55)
DX: Z12.11 Encounter for screening for malignant neoplasm of colon (principal); Q43.8 Other specified congenital malformations of intestine
CPT/HCPCS: G0121; J7120; J2405

== ENCOUNTER → 2024-04-14 | Outpatient (CLI) | payer MEDICARE, OTHER, SELFPAY ==
[2024-04-14 12:18] LABS: Absolute Lymphocyte Count 1.03 X10^3/uL (0.83-4.51); Absolute Neutrophil Count 3.1 X10^3/uL (2.0-7.7); Basophil# 0.03 X10^3/uL; Basophil% 0.6 % (0-1); Eosinophil# 0.09 X10^3/uL; Eosinophils% 1.9 % (0-5); Hematocrit 45.5 % (40-54); Lymphocyte # 1.03 X10^3/ul (0.83-4.51); Lymphocyte % 21.5 % (19-41); Mean Corpuscular Hgb 29.6 pg (27.0-32.0); Mean Corpuscular Volume 89.7 fL (80-94); Mean Platelet Vol. 10.8 fl (6.2-12.0); Monocyte# 0.51 X10^3/uL; Monocyte% 10.6 % (0-10); NRBC Flagged by Analyzer 0 % (0-5); Neutrophil # 3.11 X10^3/uL (2.7-7.7); Neutrophil % 64.8 % (47-70); Platelet Count 218 K/mm3 (150-450); RBC Distribution Width CV 13.3 % (11.6-14.6); RBC Distribution Width SD 43.4 fl (35.1-43.9); Red Blood Count 5.07 M/mm3 (4.6-6.2); White Blood Count 4.8 K/mm3 (4.4-11.0)
[2024-04-14 12:41] LABS: AST(SGOT) 28 U/L (15-37); Alanine Aminotransfer ALT/SGPT 47 U/L (16-61); Albumin, Serum 3.8 g/dL (3.2-5.0); Alkaline Phosphatase 79 U/L (45-117); Anion Gap 4 (5-15); BUN 17 mg/dL (7-18); BUN/Creat Ratio 19.7 RATIO (10-20); Chloride 104 mmol/L (98-107); Cholesterol 212 mg/dL (200); Creatinine, Serum 0.86 mg/dL (0.70-1.30); EST Glomerular Filtration Rate 94 mL/min (>60); Est Glom Filt Rate - Afr Amer 113 mL/min (>60); Globulin 3.7 g/dL (2.2-4.2); Glucose 91 mg/dL (74-106); High Density Lipoprotein 60 mg/dL; PSA,Total - Annual Screen 0.59 ng/mL (0.00-4.00); Potassium 4.3 mmol/L (3.5-5.1); Protein, Total 7.5 g/dL (6.4-8.2); Sodium Level 137 mmol/L (136-145); Triglycerides 72 mg/dL; Very Low Density Lipoprotein 14 mg/dL (5-40)
== END | disposition home or self-care (01) ==
LOC: BIMLAB 09:40
PROVIDERS: PCP Internal Medicine; Referring Provider Internal Medicine; Visit Provider Internal Medicine
DX: R09.89 Other specified symptoms and signs involving the circulatory and respiratory systems (principal); Z13.6 Encounter for screening for cardiovascular disorders; E55.9 Vitamin D deficiency, unspecified; Z12.5 Encounter for screening for malignant neoplasm of prostate